=== PATIENT | female | born 1995 | race African-American/Black ===

== ENCOUNTER 2017-11-12 12:40 | Emergency (ER) | payer OTHER ==
[~2017-11-12] VITALS: Ht 149.9 cm; Wt 56.7 kg
[2017-11-12 14:21] LABS: URINE BLOOD 2+ (Negative); URINE CLARITY CLEAR; URINE COLOR YELLOW; URINE GLUCOSE-RANDOM* NEGATIVE (Negative); URINE KETONES NEGATIVE (Negative); URINE LEUKOCYTES-REFLEX NEGATIVE (Negative); URINE NITRITE-REFLEX NEGATIVE (Negative); URINE PROTEIN (DIPSTICK) NEGATIVE (Negative); URINE SPECIFIC GRAVITY >= 1.030 (1.005-1.035)
[2017-11-12 14:22] LABS: ICTOTEST (BILI CONFIRMATORY) Negative (Negative); URINE BILIRUBIN NEGATIVE (Negative)
[2017-11-12 14:30] LABS: SQUAMOUS 4-10 Moderate /LPF (0-3); URINE RBC 3-10 Few /HPF (0-2); URINE WBC-REFLEX 0-5 Rare /HPF (0-5)
[2017-11-12 14:31] LABS: CASTS None Seen /LPF (None Seen); CRYSTALS None Seen /LPF (None Seen); MUCUS >6 Heavy strn/LPF (None Seen)
[2017-11-12 14:55] VITALS: BP 107/78
[2017-11-13 13:10] LABS: NEISSERIA GONORRHEA-PCR Negative (Negative)
== END 2017-11-12 14:58 | disposition home or self-care (01) ==
LOC: ER 12:40
PROVIDERS: Physician Assistant
DX: N90.89 Other specified noninflammatory disorders of vulva and perineum (principal); L25.9 Unspecified contact dermatitis, unspecified cause